=== PATIENT | male | born 1990 ===

== ENCOUNTER 2022-05-26 15:25 | Outpatient (REF) | payer OTHER, SELFPAY ==
[2022-05-26 15:53] LABS: Calculated LDL 189 mg/dL (<100); Cholesterol 307 mg/dL (<200); HDL Cholesterol 45 mg/dL (40-60); Triglyceride 368 mg/dL (<150)
[2022-05-26 16:06] LABS: Hemoglobin A1C 5.6 % (<5.7)
[2022-05-28 10:26] LABS: HIV-1/2 Ag & Ab Screen Negative (Negative)
[2022-05-28 10:36] LABS: Hepatitis C Ab w Rflx HCV PCR Negative (Negative)
== END 2022-05-26 15:26 | disposition home or self-care (01) ==
LOC: NCHCN 15:25
PROVIDERS: Visit Provider Nurse Practitioner Family
DX: R03.0 Elevated blood-pressure reading, without diagnosis of hypertension (principal); E66.01 Morbid (severe) obesity due to excess calories; Z11.4 Encounter for screening for human immunodeficiency virus [HIV]; Z11.59 Encounter for screening for other viral diseases
CPT/HCPCS: 80061; 86803; 87389; 83036

== ENCOUNTER 2024-02-15 16:06 | Outpatient (REF) | payer OTHER, SELFPAY ==
--- OUTSIDE RECORDS SUMMARY | 2024-02-15 16:09 | XMS_ITS | Encounter Summary ---
Author Organization [facility] Address [address] [place] [address] Care Team Providers Care Swiss Type Screw Machine Operator Name Role Phone Mariajose James MD Primary Care Provider Unavail able Encounter Details Date Type Department Care Team (Late st Contact Info) Description 05/17/2004 Office Visit [facility] [address] [place] [address] Brian Nelson, MELANIE [address] [place] [address] Social History Tobacco Use Types Packs/Day Years Used Date Smoking Tobacco: Never Assessed Sex and Gender Information Value Date Recorded Sex Assigned at Not on file Legal Sex Male 17:59 EST Gender Identity Male 11/18/2020 19:38 EDT Sexual Orientation Not on file documented as of this encounter Progress Notes * Yoan, Conv Fretted Instruments Inspector - 05/25/2009 0019 EST [facility] ??? Physician Summary Registration Date/Time 05/17/2004 19:13 Time Seen (20:10 ). Arrived- By private vehicle. HISTORY OF PRESENT ILLNESS Chief Complaint: low back laceration from glass. Onset was just prior to arrival today ([id number] PM).The quality is noted to be (stinging). It is described as being mild and in the area of the lower lumbar spine. No radiation. Associated symptoms - No bladder dysfunction, bowel dysfunction, sensory loss or motor loss. Patient notes an injury. Mechanism of injury ( backed into window pane and glass broke causing an avulsion laceration in central lumbar region.). Patient denies injury to the head or neck. No other injury. Patient has not had similar symptoms previously. Not recently seen/assessed. REVIEW OF SYSTEMS No fever, chills, difficulty with urination, urinary frequency or hematuria. No headache, abdominalpain, nausea, vomiting or diarrhea. PAST HISTORY Negative. No history of previous surgery. Medications: None. Allergies: No known drug allergies. ADDITIONAL NOTES The nursing notes have been reviewed. PHYSICAL EXAM Appearance: Alert. No acute distress. Vital Signs: The vital signs have been reviewed. Back: Normal inspection. No back tenderness. Painless ROM. Skin: Normal skin color. Skin warm and dry. No rash. (+) 2.5 cm avulsion flap laceration full thickness with nearly devitalized flap. Extremities: Extremities exhibit normal ROM. Extremities nontender. Neuro: Oriented X 3. Mood/affect normal. No motor deficit. No sensory deficit. Reflexes normal. PROGRESS AND PROCEDURES Laceration Repair: Location (central lumbar region). Wound depth/shape- irregular and flap-like and involving muscle. Wound is clean. No foreign body present. Distal neuro/vascular/tendon status normal. Local anesthesia provided using 1% lidocaine. Prepped with Betadine. Wound prep- 1cm x 1 cm flap excised as tissue nearly devitalized and too retracted to stretch back over opening of wound. Wound explored, cleansed and irrigated extensively with normal saline. Debrided. devitalized flap excised approximately 1cm x 1cm. Closure of skin: interrupted 4??0 nylon (6 sutures). Sterile dressing consisting of Tegaderm was applied,following the application of antibiotic ointment. Disposition: Discharged home in improved condition (21:22 PM). CLINICAL IMPRESSION Laceration. (central lumbar region). INSTRUCTIONS Protect wound and keep wound area clean (!st shower Wednesday AM, then can shower daily. No soaks. No ointment once stable scab forms. Air dy at night with stable scab.). Change dressing twice daily. Keep wounds dry. Sutures/candy should be removed in ten days. (No bending at waist in fullflexion until after suture removal. Light activity only.). OTC Medications: Motrin (available over the counter): take according to label instructions. Follow-up: Follow up with your doctor or here immediatelly if signs of infection appear. Jose A Nelson PA-C (Electronically signed Jose A Nelson PA-C 05/18/2004 20:03) Physician's Clinical Report [facility] ??? Nursing Summary Registration Date/Time 05/17/2004 19:13 TRIAGE Initial Assessment Triage time 19:37 --1936 Renetta Montoya L.P.N. HR: 108 RR: 20 Temp: 98.2 --1947 Renetta Montoya L.P.N. Medications None. --1947 Renetta Montoya L.P.N. Allergies No known drug allergies. --1947 Renetta Montoya L.P.N. History Arrived by private vehicle. Historian: patient and family. --1936 Renetta Montoya L.P.N. Chief Complaint: PUNCTURE WOUND and (bent over buttock went through glass door). Pain level now: 05/01. PAST HX: Negative. No history of previous surgery. Tetanus status: up-to-date. --1947 Renetta Montoya L.P.N. PHYSICAL ASSESSMENT Alert. Appears in no acute distress. (R lower back with jagged lac. ). Extremities exhibit normal ROM. Neuro-vascular status intact to the extremity. Mucous membranes are pink. Skin is warm. --1952 Renetta Montoya L.P.N. NURSING PROGRESS NOTES Progress Wound cleansed with sterile saline (flushed). Call light placed in reach of parent. Bed placed in lowest position. Brakes of bed on. Patient ready for evaluation- chart flagged and ED physician notified. --1952 Renetta Montyoa L.P.N. Patient walked to radiology. --2026 Carmen Rodriguez R.N. Dressing consisting of tegaderm was applied, following the application of antibiotic ointment. Sterile dressing not applied. --2118 Carmen Rodriguez R.N. DISPOSITION / DISCHARGE Condition at departure: improved. No barriers to learning present. Discharge instructions reviewed with the patient and parent. Parent verbalized understanding. The patient was discharged home and accompanied by parent. The patient left the Emergency Department ambulatory and via private vehicle. Dimitris pond has no belongings. --2119 Miko Becker L.P.N., R.N. Locked/Released at 05/17/2004 21:20 by Carmen Rodriguez R.N. documented in this encounter Plan of Treatment Not on file documented as of this encounter Visit Diagnoses Not on filedocumented in this encounter Care Teams Swiss Type Screw Machine Operator Relationship Specialty Start Date End Date Mariajose James MD PCP - General 01/22/09 09/27/14 documented as of this encounter
--- OUTSIDE RECORDS SUMMARY | 2024-02-15 16:09 | XMS_ITS | Encounter Summary ---
Author Organization [facility] Address [address] [place] [address] Care Team Providers Care Chemical Laboratory Tester Name Role Phone Mariajose James MD Primary Care Provider Unavail able Encounter Details Date Type Department Care Team (Late st Contact Info) Description 05/30/[address] [phone] Mariajose James MD Social History Tobacco Use Types Packs/Day Years Used Date Smoking Tobacco: Never Assessed Sex and Gender Information Value Date Recorded Sex Assigned at Not on file Legal Sex Male 17:59 EST Gender Identity Male 11/18/2020 19:38 EDT Sexual Orientation Not on file documented as of this encounter Plan of Treatment Not on file documented as of this encounter Visit Diagnoses Not on filedocumented in this encounter Historical Medications * This list may reflect changes made after this encounter. ibuprofen (ADVIL) 200 mg tablet Take 200 mg by mouth 2 times daily. added in this encounter Care Teams Chemical Laboratory Tester Relationship Specialty Start Date End Date Mariajose James MD PCP - General 01/22/09 09/27/14 documented as of this encounter
--- OUTSIDE RECORDS SUMMARY | 2024-02-15 16:09 | XMS_ITS | Referral Summary ---
Author Organization [facility] Address [address] [place] [address] Care Team Providers Care Poured Concrete Wall Technician Name Role Phone Pierre Michael PA-C Primary Care Provider [phone] Allergies No known active allergies Medications ibuprofen (ADVIL) 200 mg tablet Take 200 mg by mouth 2 times daily. Active nystatin (MYCOSTATIN) creamIndication s:Tinea corporis Apply 1 application topically to affected area 2 times daily. 30 g 1 1 Active Active Problems Problem Noted Date Diagnosed Date Hypertriglyceridemia 10/22/2014 Obesity (BMI 35.0-39.9 without comorbidity) 09/21 Overview (10/19/2014): Nocturnal eating, frequent regular soda drinking (10-12 cans per day) Immunizations Name Administration Dates Next Due Covid-19 mRNA Vaccine (MODER NA COVID-19) PF 0.5 ml IM (12 yrs+) 08/13/2020,07/16/2020 DTP Vaccine IM 04/24/1993,1992,1992 DTaP Vaccine (INFANRIX) <7YO IM 08/08/1997 Hepatitis B 04/24/1993,1992 Hib 11/12/1993, 4,1992, 993 MMR Vaccine SQ 11/12/1993 PolioVirus Vaccine OPV Oral 08/08/1997, 4 Tdap Vaccine =>7YO IM 10/19/2014 Varicella (Chickenpox) vacci ne (VARIVAX) SQ 08/08/1997 Social History Tobacco Use Types Packs/Day Years Used Date Smoking Tobacco: Never Smokeless Tobacco: Never Alcohol Use Standard Drinks/Week Comments Not Asked 0 (1 standard drink = 0.6 oz pur e alcohol) Sex and Gender Information Value Date Recorded Sex Assigned at Not on file Legal Sex Male 17:59 EST Gender Identity Male 11/18/2020 19:38 EDT Sexual Orientation Not on file Last Filed Vital Signs Vital Sign Reading Time Taken Comments Blood Pressure 144/91 11/22/2020 1420 EDT Pulse 72 11/22/2020 1420 EDT Temperature - - Respiratory Rate 16 10/19/2014 0829 EDT Oxygen Saturation - - Inhaled Oxygen Concentration - - Weight 117.9 kg (260 lb) 11/22/2020 1420 EDT Height 167.6 cm (5' 6) 10/19/2014 0829 EDT Body Mass Index 41.97 10/19/2014 0829 EDT Plan of Treatment Not on file Goals Goal Patient Goal Type Associated Problems Recent Progress Patient-Stated? Author Healthy Eating General Yes Lan Gonzalez PA-C Note: Healthy Eating Goal: stop drinking regular soda Confidence level (1= Not very confident; 10 = Very confident): 8 Barriers: None Healthy Eating General Yes Lan Gonzalez PA-C Note: Healthy Eating Goal: nothing but fruits/veggies after evening meal Confidence level (1= Not very confident; 10 = Very confident): 8 Barriers: None Procedures Procedure Name Priority Date/Time Associated Diagnosis Comments HEPATITIS C AB W REFLEX TO HCV RNA BY PCR Routine 05/26/2022 11:50 EST HIV 1/2 ANTIGEN AND ANTIBODY, 4TH GENERATION Routine 05/26/2022 11:50 EST from Last 3 Months or Most Recently Relevant to Health Maintenance Results * HEPATITIS C AB W REFLEX TO HCV RNA BY PCR (05/26/2022 11:50 EST) Hep C Antibody Negative Negative 05/28/2022 10:31 EST [facility] Blood VENOUS BLOOD / Unknown 05/26/2022 11:50 EST 05/27/2022 16:52 EST us Provider Outr Resulting Lab CHEMISTRY & BLOOD GA S ORDERABLES Final Result Performing Organization Address [facility] Co de Phone Number [facility] [address] [place] [address] * HIV 1/2 ANTIGEN AND ANTIBODY, 4TH GENERATION (05/26/2022 11:50 EST) [facility] HIV 1 and 2 Antibody/p24 Antigen, 4th Generation Negative Negative 05/28/2022 10:21 EST [facility] Comment:If acute HIV-1 infec tion is suspected in a high risk patient, submit plasma specimen for HIV-1 RNA quantitation test. Blood VENOUS BLOOD / Unknown 05/26/2022 11:50 EST 05/27/2022 16:52 EST Narrative [facility] - 05/28/2022 10:21 EST Fourth Generation assay performed on the Siemens Centaur XPT. us Provider Outr Resulting Lab IMMUNOLOGY AND SEROL OGY ORDERABLES Final Result Performing Organization Address [facility] Co de Phone Number [facility] [address] [place] [address] from Last 3 Months or Most Recently Relevant to Health Maintenance Insurance [facility] Care Teams Poured Concrete Wall Technician Relationship Specialty Start Date End Date Pierre Michael PA-C [address] [place] [phone] PCP - General 07/03/22
--- OUTSIDE RECORDS SUMMARY | 2024-02-15 16:09 | XMS_ITS | Encounter Summary ---
Author Organization [facility] Address [address] [place] [address] Care Team Providers Care Agricultural Agent Name Role Phone Mariajose James MD Primary Care Provider Unavail able Reason for Visit * Reason Comments Annual Exam here for a physical no new issues at this time. Encounter Details Date Type Department Care Team (Late st Contact Info) Description 10/19/2014 8:45 EDT Office Visit [facility] [address] [address] Lan Gonzalez PA-C [address] [place] [address] [place] [id number] Routine physical examination (Primary Dx); Need for Tdap vaccination; Obesity (BMI 35.0-39.9 without comorbidity) Social History Tobacco Use Types Packs/Day Years [...] on file documented as of this encounter Last Filed Vital Signs Vital Sign Reading Time Taken Comments Blood Pressure 130/80 10/19/2014 0829 EDT Pulse 70 10/19/2014 0829 EDT Temperature - - Respiratory Rate 16 10/19/2014 0829 EDT Oxygen Saturation - - Inhaled Oxygen Concentration - - Weight 107.5 kg (237 lb) 10/19/2014 0829 EDT Height 167.6 cm (5' 6) 10/19/2014 0829 EDT Body Mass Index 38.25 10/19/2014 0829 EDT documented in this encounter Patient Instructions * Patient Instructions* Lan Gonzalez PA - 10/19/2014 8:34 EDT Try melatonin 3mg 30-45 minutes before desired sleep documented in this encounter Progress Notes * Alem Paz - 10/19/2014 1653 EDT Venipuncture performed for Lipid, HbA1c Per orders of Lan Gonzalez Diagnosis of Screening I was supervised by Lan Gonzalez who was present and immediately available in the office suite. Alem Paz 10/19/2014 16:53 * Gwen Barnes LPN - 10/19/2014 0926 EDT Tdap administered IM to left deltoid per order Lan TRIANA * Lan Gonzalez PA - 10/19/2014 0834 EDT Male Adult Preventative Care Visit Patient ID: Mustapha Villarreal is an 24 y.o. male. Subjective: HISTORY OF PRESENT ILLNESS: Here for routine physical. SOB with exertion. 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 Lives around smokers but has never smoked. No hx asthma. Drinks alcohol < 1x per week. 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 Lives with parents- both are smokers. 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 Drinks 10-12 regular sodas per day. Eats a lot at night. FH completed Patient Active Problem List Diagnosis ??? Obesity (BMI 35.0-39.9 without comorbidity) No past medical history on file. No past surgical history on file. History Substance Use Topics ??? Smoking status: Never Smoker ??? Smokeless tobacco: Never Used ??? Alcohol Use: Not on file Family History Problem Relation Age of Onset ??? Heart Disease Paternal Grandmother 60 ??? Heart Disease Paternal Uncle 16 Not on File Current Outpatient Prescriptions Medication Sig Dispense Refill ??? ibuprofen (ADVIL) 200 mg tablet Take 200 mg by mouth 2 times daily. No current facility-administered medications for this visit. Review of Systems Constitutional: Negative. HENT: Negative. Respiratory: Positive for shortness of breath and wheezing. Cardiovascular: Negative. Gastrointestinal: Negative. Genitourinary: Negative. Skin: Negative. Neurological: Negative. Psychiatric/Behavioral: Negative. Objective: BP 130/80 mmHg Pulse 70 Resp 16 Ht 167.6 cm (66) Wt 107.502 kg (237 lb) BMI 38.27 kg/m2 Body mass index is 38.27 kg/(m^2). Physical Exam Constitutional: He is oriented to person, place, and time. He appears well- developed and well-nourished. HENT: Right Ear: External ear normal. Left Ear: External ear normal. Eyes: EOM are normal. Pupils are equal, round, and reactive to light. Neck: Normal range of motion. Cardiovascular: Normal rate and regular rhythm. Exam reveals no gallop and no friction rub. No murmur heard. Pulmonary/Chest: Effort normal and breath sounds normal. Abdominal: Soft. Bowel sounds are normal. He exhibits no distension. There is no tenderness. Musculoskeletal: Normal range of motion. Neurological: He is alert and oriented to person, place, and time. Skin: Skin is warm. Psychiatric: He has a normal mood and affect. His behavior is normal. Nursing note and vitals reviewed. Assessment: Immunization History Administered Date(s) Administered ??? DTP Vaccine IM 1992, 1992, 04/24/1993 ? ? DTaP Vaccine <7YO IM 08/08/1997 ??? Hepatitis B 1992, 04/24/1993 ??? Hib 1992, 1992, 04/24/1993, 11/12/1993 ??? MMR Vaccine SQ 11/12/1993 ??? PolioVirus Vaccine OPV Oral 11/12/1993, 08/08/1997 ? ? Tdap Vaccine =>7YO IM 10/19/2014 ??? Varicella (Chickenpox) SQ 08/08/1997 Plan: Mustapha was seen today for annual exam. Diagnoses and associated orders for this visit: Routine physical examination- due for TDaP Need for Tdap vaccination - Tdap vaccine greater than or equal to 7yo IM Obesity (BMI 35.0-39.9 without comorbidity)- discussed healthier eating and increase in exercise; will order metabolic screenings - Lipid Profile (Includes Cholesterol, Triglycerides, HDL, LDL) - Hemoglobin A1c Goals ??? Healthy Eating Healthy Eating Goal: stop drinking regular soda Confidence level (1= Not very confident; 10 = Very confident): 8 Barriers: None ??? Healthy Eating Healthy Eating Goal: nothing but fruits/veggies after evening meal Confidence level (1= Not very confident; 10 = Very confident): 8 Barriers: None Return in about 1 year (around 10/20/2015) for physical. References: USPTF Level A & B Recommendations List USPTF Adult Recommendations USPTF Breast Cancer Screening USPTF Cervical Cancer Screening USP Colorectal Cancer Screening CDC Adult Immunizations 2010 CDC 7-18 Years Immunizations 2011 AA Clinical Recommendations documented in this encounter Plan of Treatment Not on file documented as of this encounter Goals Goal Patient Goal Type Associated Problems [...] 10 = Very confident): 8 Barriers: None documented as of this encounter Procedures Procedure Name Priority Date/Time Associated Diagnosis Comments HEMOGLOBIN A1C Routine 10/19/2014 8:40 EDT Obesity (BMI 35.0-39.9 without comorbidity) LIPID PROFILE (INCLUDES CHOLESTEROL, TRIGLYCERIDES, HDL, LDL) Routine 10/19/2014 8:40 EDT Obesity (BMI 35.0-39.9 without comorbidity) documented in this encounter Results * HEMOGLOBIN A1C (10/19/2014 8:40 EDT) Hemoglobin A1C 5.1 % 10/21/2014 13:27 T [facility] Comment: Reference Range: <5.7% Normal 5.7-6.4% Increased risk for diabetes =>6.5% Diagnostic for diabetes (if confirmed) The A1c goal for non adults in general is <7%. The A1c goal for selected patients may be significantly lower than 7% if this can be achieved without significant hypoglycemia or other adverse effects of treatment. Est Avg Glucose 100 mg/dl 5 13:27 T [facility] Comment: eAG represents the A1c result expressed as average glucose in mg/dl. Blood specimen (specimen) BLOOD SPECIMEN / Unknown 10/19/2014 8:40 EDT 10/19/2014 18:58 EDT us Lan Gonzalez PA-C CHEMISTRY & BLOOD GAS AGUEDA MENESES Final Result [facility] [address] [place] [address] * LIPID PROFILE (INCLUDES CHOLESTEROL, TRIGLYCERIDES, HDL, LDL) (10/19/2014 8:40 EDT) Cholesterol 250 mg/dl 10/19/2014 19:25 T [facility] Comment: Desirable:<200 Borderline High:200-239 High:>wa=817 Triglycerides 317 mg/dl 10/19/2014 19:25 [facility] Comment: Normal:<150 Borderline High:150-199 High:200-499 Very High:>gk=608 HDL 37 mg/dl 10/19/2014 19:25 [facility] Comment: Low:<40 Normal:40-60 Desirable: >60 LDL, Calculated 150 mg/dl 5 19:25 [facility] Comment: Optimal:<100 Near Optimal:100-129 Borderline High:130-159 High:160-189 Very High:>lf=037 Chol/HDL Ratio 6.8 10/19/2014 19:25 EDT [facility] Fasting? Unknown 10/19/2014 18:58 EDT [facility] Non HDL Cholesterol 213 mg/dl 10/19/2014 19:25 EDT [facility] Comment: Desirable:<130 Borderline:130-159 High: 160-189 Very High: >gv=828 Blood specimen (specimen) BLOOD SPECIMEN / Unknown 10/19/2014 8:40 EDT 10/19/2014 18:58 EDT us Lan Gonzalez PA-C CHEMISTRY & BLOOD GAS ORDE GIDEON Final Result [facility] [address] [place] [address] documented in this encounter Visit Diagnoses Diagnosis Routine physical examination- Primary Routine general medical examination at a health care facility Need for Tdap vaccination Need for prophylactic vaccination with combined dpdozhxewo-jjckxux-pijujrime (DTP) vaccine Obesity (BMI 35.0-39.9 without comorbidity) Obesity, unspecified documented in this encounter Orders Immunization/Injection Count Last Ordered Date First Ordered Date TDAP VACCINE =>7YO IM 1 10/19/2014 documented in this encounter Care Teams Agricultural Agent Relationship Specialty Start Date End Date Mariajose James MD PCP - General 09/28/14 08/22/18 documented as of this encounter
--- OUTSIDE RECORDS SUMMARY | 2024-02-15 16:09 | XMS_ITS | Encounter Summary ---
Author Organization [facility] Address [address] [place] [address] Care Team Providers Care Oxide Furnace Tender Name Role Phone Unavailable Primary Care Provider Unavailabl e Encounter Details Date Type Department Care Team (Latest Contact Info) Description 08/24/2001 18:25 EDT Hospital Encounter [address] [address] John Goncalves MD Discharge Disposition: Auto Discharge Social History Tobacco Use Types Packs/Day Years Used Date Smoking Tobacco: Never Assessed Sex and Gender Information Value Date Recorded Sex Assigned at Not on file Legal Sex Male 17:59 EST Gender Identity Male 11/18/2020 19:38 EDT Sexual Orientation Not on file documented as of this encounter Discharge Disposition Disposition Code Departure Means Destination Auto Discharge documented in this encounter Plan of Treatment Not on file documented as of this encounter Visit Diagnoses Not on filedocumented in this encounter
--- OUTSIDE RECORDS SUMMARY | 2024-02-15 16:09 | XMS_ITS | Encounter Summary ---
Author Organization [facility] Address [address] [place] [address] Care Team Providers Care Sales Agent Name Role Phone Unavailable Primary Care Provider Unavailabl e Encounter Details Date Type Department Care Team (Latest Contact Info) Description 05/17/2004 19:12 EST Hospital Encounter [address] [address] Ilya Justin MD [address] [place] [phone] Discharge Disposition: Auto Discharge Social History Tobacco [...] on file documented as of this encounter Procedures Procedure Name Priority Date/Time Associated Diagnosis Comments L SPINE 2-3 VIEWS Routine 05/17/2004 20: 06 EST documented in this encounter Results * L SPINE 2-3 VIEWS (05/17/2004 20:06 EST) Anatomical Region Laterality Modality Other 05/17/2004 20:0 6 EST Impressions 11/27/2008 9:34 EDT IMPRESSION: Negative. DESCRIPTION: AP and lateral views of the lumbosacral spine are normal. No opaque foreign body identifid. COMPARISONS: None. /[facility]azan Narrative 11/27/2008 9:34 EDT R/O FOREIGN BODY (GLASS) LACERATION THIS DAY LS SPINE, 05/17/042004 Procedure Note Cristino Gandhi MD - 11/27/2008 R/O FOREIGN BODY (GLASS) LACERATION THIS DAY LS SPINE, 05/17/042004 IMPRESSION IMPRESSION: Negative. DESCRIPTION: AP and lateral views of the lumbosacral spine are normal. No opaque foreign body identifid. COMPARISONS: None. /[facility] Ilya Justin MD IMG DIAGNOSTIC IMAGING O RDERABLES Final Result documented in this encounter Visit Diagnoses Not on filedocumented in this encounter
--- OUTSIDE RECORDS SUMMARY | 2024-02-15 16:09 | XMS_ITS | Encounter Summary ---
Author Organization [facility] Address [address] [place] [address] Care Team Providers Care Distance Learning Unit Leader Name Role Phone Mariajose James MD Primary Care Provider Unavail able Encounter Details Date Type Department Care Team (Late st Contact Info) Description 09/02/2003 Office Visit [facility] [place] [facility] [address] [place] [address] Sai Santos, HEALTH OCCUPATIONS TEACHER [address] [place] [address] Social History Tobacco Use Types Packs/Day Years Used Date Smoking Tobacco: Never Assessed Sex and Gender Information Value Date Recorded Sex Assigned at Not on file Legal Sex Male 17:59 EST Gender Identity Male 11/18/2020 19:38 EDT Sexual Orientation Not on file documented as of this encounter Progress Notes * Yoan, Conv Websphere Portal Developer - 05/24/20092 EST [facility] ??? Physician Summary Registration Date/Time 09/02/2003 13:22 Time Seen (14:44 Sep 02 2003 ). Arrived- By private vehicle. Historian- patient. HISTORY OF PRESENT ILLNESS Chief Complaint- Injury to the left ankle. The injury happened just prior to arrival. The patient slipped and sustained an inversion injury while running during sports. Occurred at an athletic field.Patient is experiencing mild pain. Patient denies injury to the head or neck. No otherinjury. REVIEW OF SYSTEMS The patient complains of pain on weight-bearing. No weakness, tingling, numbness, suspected foreignbody or skin laceration. All systems otherwise negative, except as recorded above. PAST HISTORY See nurses notes. Medications: See nurses notes. Allergies: See nurses notes. SOCIAL HISTORY Nonsmoker. No alcohol or drug use. No recent travel. Is a local resident. ADDITIONAL NOTES The nursing notes have been reviewed. PHYSICAL EXAM Appearance: Alert. No acute distress. Vital Signs: The vital signs have been reviewed. Head: Head atraumatic. Eyes: Pupils equal, round and reactive to light. Eyes normal inspection. Neck: Normal inspection. Neck supple. C-spine non-tender. CVS: Normal heart rate and rhythm. Respiratory: No respiratory distress. Back: Normal inspection. No back tenderness. ROM normal. Skin: Skin intact. Skin warm and dry. Extremities: Foot/ankle soft-tissue tenderness. Foot/ankle bony tenderness. Left medial ankle: mildtenderness of the medial ligaments and medial malleolus. No joint effusion. No swelling, laceration, abrasion, ecchymosis or deformity. No limitation in ROM. Left lateral ankle: mild tenderness of the lateral ligaments and lateral malleolus (primaryily tend over lat lig & not on lat mall or growth plates, can stand on it but mild pain lat ligaments only). No joint effusion. No swelling, laceration, abrasion, ecchymosis or deformity. No limitation in ROM. Neg Mandujano test No signs of infection present in the feet or ankles. No foot injury. Foot and ankle exam otherwise negative. Extremities otherwise negative. SELDOVIA ANKLE RULES: The need for X-rays is supported by the presence of bony tenderness at the posterior edge or tip of the lateral malleolus. Gait: Gait not tested due to pain. Neuro, Vascular and Tendons: Vascular status intact. Sensation intact. Motor intact. Tendon function intact. Neuro: Oriented X 3. No motor deficit. No sensory deficit. LABS, X-RAYS, AND EKG X-Rays: Left ankle negative. The X-rays have been independently viewed by me and interpreted contemporaneously by me. PROGRESS AND PROCEDURES Patient and family counseled regarding the patient's diagnosis and need for follow-up. Disposition: Condition: good and stable. Discharged home in good condition and stable condition. CLINICAL IMPRESSION Sprained left ankle. Difficulty walking secondary to pain and injury. INSTRUCTIONS Apply ice intermittently (15-20 minutes at a time 4-6x daily). Use crutches for three days until released. Wear elastic wrap (Michael wrap) as directed (until you get Aircast). Elevate injured areas above chest level. No weight bearing on left leg until released. Warnings: INJURY COMPLICATIONS: Complications from this injury include: possible injury to a tendon, possible injury to a ligament and possible occult fracture. You may havefuture problems such as loss of function and poor fracture healing. It is important to follow up with a physician for further evaluation and treatment. Follow-up: Follow up with your doctor Wednesday even if well. Sai Santos A.P.R.N. (Electronically signed Sai Santos A.P.R.N. 09/02/2003 15:44) Physician's Clinical Report Addenda Registration Date: 09/02/2003 09/03/2003 16:20 Seen here 09/02/03 for ankle pain. Jack calls today for X-Ray report. Per RTAS, no fracture identified. Dad aware, will follow instructions per discharge and have child recheck PRN. signed Gisel Jc R.N. - 09/03/2003 16:20) [facility] ??? Nursing Summary Registration Date/Time 09/02/2003 13:22 TRIAGE Initial Assessment Triage time 14:03 BP: 98 / 70 lying L arm manual (reg adult cuff). HR: 84 regular RR: 18 Temp: 97.7 (oral). --1411 Agustín PoloNHarpal Medications None. --1411 Jigna Ge RHarpalN. Allergies No known drug allergies. --1411 Agustín PoloN. History Chief Complaint: INJURY TO LEFT ANKLE. This occurred just prior to arrival. Mechanism of injury: twisting injury (and hyperextended left lower leg while running at [employer]. Dad states pts ankle was deformed, turning outward initially, ok now. ).Pain level now: 9/10. Pain level at this time described as moderate. At maximum, pain leveldescribed as 10/10. The patient has had severe trouble walking. The patient has been unable to stand. No numbness or tingling. Treatment FIELD REPORTER: ice. PAST HX: Negative. No history of previous surgery. Arrived by private vehicle. Historian: patient and family. --1411 Jigna Ge R.N. PHYSICAL ASSESSMENT To room via wheelchair. Appears in pain. Oriented X 3. Limited ROM present. Capillary refill is less than 2 seconds in the extremities. Extremity pulses are within normal limits. The patient was unable to bear weight. Neuro-vascular status intact to the extremity. Left ankle: localized to the anterior ankle, lateral malleolus and medial malleolus. Left medial ankle: moderate tenderness and mild swelling. No laceration. Skin intact. Skin is warm and dry. --141 Jigna Ge R.N. NURSING PROGRESS NOTES Progress Cold pack applied. Extremity elevated. Call light placed in reach of parent. Side rails up x 2. Bedplaced in lowest position. Brakes of bed on. --141 Jigna Ge R.N. 2 inch michael bandage applied to left ankle by nurse; distal pulses intact and sensation intact. Patient fit with crutches (with return demo by pt). --561 NITZA Kim DISPOSITION / DISCHARGE Condition at departure: improved. Discharge instructions reviewed with the patient and parent. Patient and parent verbalized understanding. The patient was discharged home and accompanied by family. The patient left the Emergency Department ambulatory. Patient has no belongings. --1604 NITZA Kim R.N., GN Locked/Released at 09/02/2003 16:04 by NITZA Kim documented in this encounter Plan of Treatment Not on file documented as of this encounter Visit Diagnoses Not on filedocumented in this encounter Care Teams Distance Learning Unit Leader Relationship Specialty Start Date End Date Mariajose James MD PCP - General 01/22/09 09/27/14 documented as of this encounter
--- OUTSIDE RECORDS SUMMARY | 2024-02-15 16:09 | XMS_ITS | Encounter Summary ---
Author Organization [facility] Address [address] [place] [address] Care Team Providers Care Quarter Section Ironer Name Role Phone Lan Gonzalez PA-C Primary Care Provider + [phone] Pierre Michael PA-C Primary Care Provider [phone] Encounter Details Date Type Department Care Team (Late st Contact Info) Description 05/27/2022 Lab Requisition [facility] Pathology & Laboratory Medicine - [facility] [address] [place], [place] [address] Outr Resulting Lab, Provider Social History Tobacco Use Types Packs/Day Years [...] RNA BY PCR Routine 05/26/2022 11:50 EST documented in this encounter Results * HEPATITIS C AB W REFLEX TO HCV RNA BY PCR (05/26/2022 11:50 EST) Hep C Antibody Negative Negative 05/28/2022 10:31 EST [facility] Blood VENOUS BLOOD / Unknown 05/26/2022 11:50 EST 05/27/2022 16:52 EST us Provider Outr Resulting Lab CHEMISTRY & BLOOD GA S ORDERABLES Final Result Performing Organization Address City/State/[facility] Co de Phone Number [facility] [address] [place] [address] documented in this encounter Visit Diagnoses Not on filedocumented in this encounter Care Teams Quarter Section Ironer Relationship Specialty Start Date End Date Lan Gonzalez PA-C [address] [place] [phone] PCP - General Family Medicine - Primary Care 11/22/20 07/02/22 Pierre Michael PA-C [address] [place] [phone] PCP - General 07/03/22 documented as of this encounter
--- OUTSIDE RECORDS SUMMARY | 2024-02-15 16:09 | XMS_ITS | Encounter Summary ---
Author Organization [facility] Address [address] [place] [address] Care Team Providers Care Light Coil Winder Name Role Phone Unavailable Primary Care Provider Unavailabl e Encounter Details Date Type Department Care Team (Late st Contact Info) Description 09/02/2003 13:21 EDT Hospital Encounter [facility] [address] [place] [address] Sai Santos, ELEVATED WORK PLATFORM OPERATOR [address] [place] [address] Discharge Disposition: Auto Discharge Social History Tobacco [...] Procedure Name Priority Date/Time Associated Diagnosis Comments ANKLE 3 OR MORE VIEWS Routine 09/02/2003 15:14 EDT documented in this encounter Results * ANKLE 3 OR MORE VIEWS (09/02/2003 15:14 EDT) Anatomical Region Laterality Modality Other 09/02/2003 15:1 4 EDT Narrative 11/29/2008 9:14 EDT 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 HISTORY: Injury with pain medial malleolus and lateral malleolus. Rule out fracture. Acute fracture is not identified. The ankle mortis is intact. Periarticular soft tissues unremarkable. /aj Procedure Note Moris Byrd MD - 11/29/2008 HYPEREXTENDED LT LEG ELECTRONIC SERVICE TECHNICIAN C/O PAIN MEDIAL MALLEOLUS AND LATERAL MALLEO LUSR/O FX THREE VIEWS LEFT ANKLE: 09/02/03 1505. HISTORY: Injury with pain medial malleolus and lateral malleolus. Rule out fracture. Acute fracture is not identified. The ankle mortis is intact. Periarticular soft tissues unremarkable. /aj Sai Santos NP IMG DIAGNOSTIC IMAGING ORDERA BLES Final Result documented in this encounter Visit Diagnoses Not on filedocumented in this encounter
--- OUTSIDE RECORDS SUMMARY | 2024-02-15 16:09 | XMS_ITS | Encounter Summary ---
Author Organization [facility] Address [address] [place] [address] Care Team Providers Care Flute Teacher Name Role Phone Lan Gonzalez PA-C Primary Care Provider + [phone] Pierre Michael PA-C Primary Care Provider [phone] Encounter Details Date Type Department Care Team (Late st Contact Info) Description 05/27/2022 Lab Requisition [facility] Pathology & Laboratory Medicine - [facility] [address] [place], [place] [id number] Outr Resulting Lab, Provider Social History Tobacco [...] Procedure Name Priority Date/Time Associated Diagnosis Comments HIV 1/2 ANTIGEN AND ANTIBODY, 4TH GENERATION Routine 05/26/2022 11:50 EST documented in this encounter Results * HIV 1/2 ANTIGEN AND ANTIBODY, 4TH GENERATION (05/26/2022 11:50 EST) HIV 1 and 2 Antibody/p24 Antigen, 4th Generation Negative Negative 05/28/2022 10:21 EST [facility] Comment:If acute HIV-1 infec tion is suspected in a high risk patient, submit plasma specimen for HIV-1 RNA quantitation test. Blood VENOUS BLOOD / Unknown 05/26/2022 11:50 EST 05/27/2022 16:52 EST Narrative [facility] - 05/28/2022 10:21 EST Fourth Generation assay performed on the Siemens DashBurstaur XPT. us Provider Outr Resulting Lab IMMUNOLOGY AND SEROL OGY ORDERABLES Final Result [facility] [address] [place] [address] documented in this encounter Visit Diagnoses Not on filedocumented in this encounter Care Teams Flute Teacher Relationship Specialty Start Date End Date Lan Gonzalez PA-C [address] [place] [phone] PCP - General Family Medicine - Primary Care 11/22/20 07/02/22 Pierre Michael PA-C [address] [place] [phone] PCP - General 07/03/22 documented as of this encounter
--- OUTSIDE RECORDS SUMMARY | 2024-02-15 16:09 | XMS_ITS | Clinical Summary ---
Author Organization [facility] Address [address] [place] [address] Care Team Providers Care Welder Fitter Name Role Phone Fernanda Pierre NAVARRO Primary Care Provider [phone] Allergies No known active allergies Medications ibuprofen [...] Varicella (Chickenpox) vacci ne (VARIVAX) SQ 08/08/1997 Family History Medical History Relation Comments Heart Disease Paternal Grandmother Heart Disease Paternal Uncle Relation Status Comments Paternal Grandmother Paternal Uncle Social History Tobacco Use Types Packs/Day Years Used Date Smoking Tobacco: Never Smokeless Tobacco: Never Alcohol Use Standard Drinks/Week Comments Not Asked 0 (1 standard drink = 0.6 oz pur e alcohol) Sex and Gender Information Value Date Recorded Sex Assigned at Not on file Legal Sex Male 17:59 EST Gender Identity Male 11/18/2020 19:38 EDT Sexual Orientation Not on file Obstetrics History Last Filed Vital Signs Vital Sign Reading [...] 41.97 10/19/2014 0829 EDT Plan of Treatment Health Maintenance Due Date Last Done Comments Social Determinants Of Healt h (SDOH) 1992 Hepatitis B Vaccine (3 of 3 - 3-dose series) 06/19/1993 04/24/1993, 1992 Depression Screening 2004 Advance Directive 2010 Preventive Care Visit 10/19/2016 10/19/2014 COVID-19 Vaccine (3 - 2023-2 5 season) 2023 08/13/2020, 07/16/2020 Influenza Immunization (Adult) (#1) 2023 Tetanus (Adult) Immunization 10/19/2024 10/19/2014 Pertussis (Adult) Immunization Completed 10/19/2014 HIV Screening Completed 05/26/2022 Hepatitis C Screen Completed 05/26/2022 HPV Vaccines Aged Out No longer eligi ble based on patient's age to complete this topic Goals Goal Patient Goal Type Associated Problems [...] C Antibody Negative Negative 05/28/2022 10:[address] [facility] Blood VENOUS BLOOD / Unknown 05/26/2022 11:50 EST 05/27/2022 16:52 EST us Provider Outr Resulting Lab CHEMISTRY & BLOOD GA S ORDERABLES Final Result Performing Organization Address City/State/[facility] Co de Phone Number [facility] [address] [place] [address] * HIV 1/2 ANTIGEN AND ANTIBODY, 4TH GENERATION (05/26/2022 11:50 EST) HIV 1 and 2 Antibody/p24 Antigen, 4th Generation Negative Negative 05/28/2022 10:[address] [facility] Comment:If acute HIV-1 infec tion is suspected in a high risk patient, submit plasma specimen for HIV-1 RNA quantitation test. Blood VENOUS BLOOD / Unknown 05/26/2022 11:50 EST 05/27/2022 16:[address] [facility] - 05/28/2022 10:21 EST Fourth Generation assay performed on the Siemens Centaur XPT. us Provider Outr Resulting Lab IMMUNOLOGY AND SEROL OGY ORDERABLES Final Result [facility] [address] [place] [address] from Last 3 Months or Most Recently Relevant to Health Maintenance Insurance [employer] Care Teams Welder Fitter Relationship Specialty Start Date End Date Pierre Michael PA-C [address] [place] [phone] PCP - General 07/03/22
--- OUTSIDE RECORDS SUMMARY | 2024-02-15 16:09 | XMS_ITS | Encounter Summary ---
Author Organization [facility] Address [address] [place] [address] Care Team Providers Care Screw Driver Operator Name Role Phone Pierre Michael PA-C Primary Care Provider [phone] Reason for Visit * Reason Onset Date Comments Appointment Related 03/04/2023 Encounter Details Date Type Department Care Team (Late st Contact Info) Description 03/04/2023 Telephone [facility] Medicine [address] [phone] Pierre Michael PA-C [address] [place] [phone] Appointment Related Social History Tobacco Use Types Packs/Day Years [...] on file documented as of this encounter Miscellaneous Notes * Telephone Encounter - Rhoda Negro LPN - 03/04/2023 1117 EST This auto service writer left message for return call to schedule annual physical with PA. HRODA Rolle LPN 03/04/2023 11:20 documented in this encounter Plan of Treatment [...] Barriers: None documented as of this encounter Visit Diagnoses Not on filedocumented in this encounter Care Teams Screw Driver Operator Relationship Specialty Start Date End Date Pierre Michael PA-C [address] [place] [phone] PCP - General 07/03/22 documented as of this encounter
--- OUTSIDE RECORDS SUMMARY | 2024-02-15 16:09 | XMS_ITS | Encounter Summary ---
Author Organization [facility] Address [address] [place] [address] Care Team Providers Care Pattern Technician Name Role Phone Lan Gonzalez PA-C Primary Care Provider [phone] Reason for Visit * Reason Comments Rash started 3 weeks ago, itches but no pain. no contact with anything and no changes at home Encounter Details Date Type Department Care Team (Late st Contact Info) Description 11/22/2020 14:15 EDT Office Visit [address] [phone] Lan Gonzalez PA-C [address] [place] [phone] Tinea corporis (Primary Dx) Social History Tobacco Use Types Packs/Day Years [...] 1420 EDT Temperature - - Respiratory Rate - - Oxygen Saturation - - Inhaled Oxygen Concentration - - Weight 117.9 kg (260 lb) 11/22/2020 1420 EDT Height - - Body Mass Index 41.97 10/19/2014 0829 EDT documented in this encounter Ordered Prescriptions Prescription Sig Dispense Quantity Refills Last Filled Start Date End Date nystatin (MYCOSTATIN) creamIndications:T inea corporis Apply 1 application topically to affected area 2 times daily. 30 g 1 11/22/2020 documented in this encounter Progress Notes * Lan Gonzalez PA-C - 11/22/2020 1415 EDT Primary Care Office Visit Assessment & Plan Diagnoses and all orders for this visit: Tinea corporis- nystatin cream; use mediated powder before work to keep self dry - nystatin (MYCOSTATIN) cream Return if symptoms worsen or fail to improve. Patient education was direct. Barriers were assessed and addressed as needed. Subjective Mustapha Villarreal is a 30 y.o. male presenting with Rash (started 3 weeks ago, itches but no pain. no contact with anything and no changes at home ) HPI Here with to discuss rash on lower abdomen, groin and left arm pit x 3 weeks. Minimal itch. Tried lotions and anti itch creams- mild improvement. No known soaps, lotions or detergents. Works on a farm- very sweaty. Never had anything like this before. Data reviewed this visit: problem list/past medical history, current medications and allergies Review of Systems Constitutional: Negative for fever. Skin: Positive for rash. Negative for itching. - See HPI Objective BP (!) 144/91 Pulse 72 Wt (!) 117.9 kg (260 lb) BMI 41.97 kg/m?? Physical Exam Vitals and nursing note reviewed. Constitutional: Appearance: He is well-developed and well-nourished. Skin: Comments: Erythematous scaly macular rash on lower abdomen, left axilla documented in this encounter Plan of Treatment [...] documented as of this encounter Visit Diagnoses Diagnosis Tinea corporis- Primary Dermatophytosis of the body documented in this encounter Care Teams Pattern Technician Relationship Specialty Start Date End Date Lan Gonzalez PA-C [address] [place] [phone] PCP - General Family Medicine - Primary Care 11/22/20 07/02/22 documented as of this encounter
[2024-02-15 21:40] LABS: HCT 47.3 % (40.0-50.0); HGB 15.8 g/dL (13.5-17.5); MCH 28.9 pg (27.0-33.0); MCHC 33.4 % (32.0-36.0); MCV 87 fL (80-95); MPV 9.4 fL (8.0-11.0); Platelet Count 352 10^3/uL (130-400); RBC 5.47 10^6/uL (4.36-5.78); RDW-SD 38.2 fL
[2024-02-15 22:01] LABS: ALT 52 U/L (16-63); AST 27 U/L (15-37); Albumin 4.4 g/dL (3.4-5.0); Alkaline Phosphatase 72 U/L (46-116); Anion Gap 4.9 mmol/L (3-11); BUN 10 mg/dL (7-18); Bilirubin, Total 0.42 mg/dL (0.2-1.0); CO2 30.1 mmol/L (21.0-32.0); CREATININE 0.9 mg/dL (0.70-1.30); Calcium 9.4 mg/dL (8.5-10.1); Chloride 100 mmol/L (98-107); Cholesterol 305 mg/dL (<200); Glucose 89 mg/dL (74-106); HDL Cholesterol 44 mg/dL (40-60); Potassium 4.1 mmol/L (3.5-5.1); Sodium 135 mmol/L (136-145); Total Protein 8.4 g/dL (6.4-8.2); Triglyceride 483 mg/dL (<150)
[2024-02-15 22:13] LABS: LDL CHOLESTEROL 161 mg/dL (<100)
== END 2024-02-15 16:07 | disposition home or self-care (01) ==
LOC: NCHCN 16:06
PROVIDERS: Visit Provider Nurse Practitioner Family
DX: E66.01 Morbid (severe) obesity due to excess calories (principal)
CPT/HCPCS: 80053; 80061; 83721; 85027

== ENCOUNTER 2024-03-10 12:44 | Outpatient (REF) | payer OTHER, SELFPAY ==
[2024-03-10 16:15] LABS: Hemoglobin A1C 5.4 % (<5.7)
[2024-03-12 15:15] LABS: Apolipoprotein B, S 179 mg/dL
== END 2024-03-10 12:45 | disposition home or self-care (01) ==
LOC: NCHCN 12:44
PROVIDERS: Visit Provider Nurse Practitioner Family
DX: E78.2 Mixed hyperlipidemia (principal); Z83.3 Family history of diabetes mellitus
CPT/HCPCS: 82172; 83036

== ENCOUNTER 2024-08-16 17:53 | Outpatient (REF) | payer OTHER, SELFPAY ==
[2024-08-16 21:42] LABS: Hemoglobin A1C 5.6 % (<5.7)
[2024-08-16 21:47] LABS: Calculated LDL 63 mg/dL (<100); Cholesterol 164 mg/dL (<200); HDL Cholesterol 33 mg/dL (>or=40); Triglyceride 340 mg/dL (<150)
== END 2024-08-16 17:54 | disposition home or self-care (01) ==
LOC: NCHCN 17:53
PROVIDERS: Visit Provider Nurse Practitioner Family
DX: E78.2 Mixed hyperlipidemia (principal); Z13.1 Encounter for screening for diabetes mellitus
CPT/HCPCS: 80061; 83036